=== PATIENT | female | born 1980 | race Caucasian/White ===

== ENCOUNTER 2016-09-13 11:58 | Inpatient (IN) | payer OTHER ==
--- OUTSIDE RECORDS SUMMARY | 2016-09-13 16:32 | XMS REPORT | Continuity of Care Document ---
:1980 Author Organization [facility] ([facility]) Address [address] [place] [address] Phone [phone] Care Team Providers Name Role Phone Provider, No-Primary Care Primary Care Provider Unavailable Source Comments This disclosure is being made pursuant to the Care Everywhere program, applicable federal and state laws, and may not contain all informaitonavailable regarding this patient.[facility] ([facility]) Active Allergies and Adverse Reactions No Known Allergies Current Medications Prescription Sig. Disp. Refills Start Date End Date Status multivitamin tablet Take 1 Tab by mouth Active daily. cholecalciferol (VITAMIN Take by mouth Active D3) 1,000 unit tablet daily. Indications: VITAMIN D DEFICIENCY Active Problems Not on file Social History Tobacco Use Types Packs/Day Years Used Date Never Smoker Alcohol Use Drinks/Week oz/Week Comments No Last Filed Vital Signs Vital Sign Reading Time Taken Blood Pressure 107/67 03/11/2014 11:26 AM CDT Pulse 79 03/11/2014 11:26 AM CDT Temperature 35.4 C (95.7 F) 03/11/2014 11:26 AM CDT Respiratory Rate - - Height 1.78 m (5' 10.08") 12/17/2013 9:29 AM CDT Weight 72.6 kg (160 lb 0.9 oz) 12/17/2013 9:29 AM CDT Body Mass Index 22.91 12/17/2013 9:29 AM CDT Oxygen Saturation - - Plan of Care Health Maintenance Due Date Last Done Comments Hepatitis B Vaccine (1 of 3 - Primary Series) 1980 Tdap Vaccine 1992 Lipid Disorder Screening 1999 MMR Vaccine 1999 Td Vaccine 1999 Varicella Vaccine (1 of 2 - Adult - No Evidence of 1999 Immunity) Cervical Cancer Screening 2011 Influenza Vaccine: Seasonal (#1) 12/29/2015 Results from Last 3 Months Not on file
[2016-09-13] MEDS ORDERED: ONDANSETRON HCL/PF 2 MG/ML VIAL IV PRN (16:42)
[2016-09-13] MEDS ORDERED: OXYTOCIN/DEXTROSE 5%-WATER 30 UNITS/500 ML BAG IV ONE (16:42)
[2016-09-13] MEDS ORDERED: RINGERS SOLUTION,LACTATED 1,000 ML IV ONE (16:42)
[2016-09-13] MEDS ORDERED: LIDOCAINE HCL 50 ML VIAL PERI PRN (16:42)
[2016-09-13] MEDS: DEXTROSE 5%-LACTATED RINGERS 1,000 ML IV PRN ×2 (16:45→20:39)
[2016-09-14] MEDS: DEXTROSE 5%-LACTATED RINGERS 1,000 ML IV PRN ×3 (00:42→14:58)
--- NOTE | 2016-09-14 12:39 | PN ---
Progess Note - Interim Narrative: 09/14/16 12:37 Patient tolerating her contractions without pain medication Vital signs stable. Pitocin at 12 mu/min. FHT: 130 baseline, reassuring Contractions q 3-4 min Cervix: 4-5/60/-2, posterior AROM @1015-clear Impression: Intrauterine at 39-5/7 weeks induction of labor for advanced maternal age and oligohydramnios Plan: Continue present plan 09/14/16 12:39
[2016-09-14] MEDS ORDERED: BUPIVACAINE HCL/0.9 % NACL/PF 250 ML EP PRN (14:21)
--- NOTE | 2016-09-14 14:25 | OR ---
Anesthesia Pre Procedure Eval Date of Service: 09/14/16 Pre Procedure Evaluation: Last Vital Signs Temp 36.9 C 11/30/14 10:00 Pulse Resp BP 116/69 11/30/14 10:00 Pulse Ox Anesthesia Pre Procedure Evaluation Heart Rate:87 Blood Pressure:126/73 Termperature:36.6 Respiratory Rate:18 SaO2:99 DATE: 09/14/2016 TIME: 1425 INDICATIONS: Active labor, labor pain PAST MEDICAL HISTORY: Is multipara patient in active labor requesting labor analgesia EXAM: Heart regular; lungs clear ASSESSMENT OF MEDICAL STATUS: Appropriate candidate for labor analgesia PLANNED PROCEDURE: Combination spinal epidural for labor analgesia Home Medications: HOME MEDICATIONS Inulin/Chromium Picolinate [Fiber Gummies] 1 each PO DAILY 09/13/16 [Last Taken Unknown] Vit#96/Ferrous Fum/FA [ S] 1 tab PO DAILY 09/13/16 [Last Taken Unknown]
[2016-09-14] MEDS ORDERED: fentaNYL CITRATE/PF 50 MCG/ML AMPUL IT SCH (14:30)
[2016-09-14] MEDS ORDERED: BUPIVACAINE HCL/PF 30 ML VIAL ONE (14:45)
--- NOTE | 2016-09-14 14:50 | OR ---
Anesthesia Procedure Note - Anesthesia Procedure Note Date of Service: 09/14/16 Narrative: Vital Signs - Last Taken Temp 36.9 C 11/30/14 10:00 Pulse Resp BP 116/69 11/30/14 10:00 Pulse Ox 09/14/16 14:43 ANESTHESIA PROCEDURE NOTE Date of Procedure: 09/14/2016 Time of procedure: 1425. Performed by: CHELSY Mar CRNA, MSN Mechanical Systems Engineer: Fabiola Gresham RN. Preprocedure diagnosis: Active labor, labor pain. Post procedure diagnosis: Same. Procedure: Labor Epidural Placement L3 4. Indications: Labor pain. Findings: See below. Details of the procedure: The patient was placed on the side of the bed in sitting position. The patient was prepped with DuraPrep and draped in a sterile fashion. Lidocaine 1% was infiltrated to the skin and subcutaneous tissues at the level of the L3 4 interspace. The epidural space was identified using a 18-gauge Tuohy needle with [id number] technique. Fentanyl 20 g was given intrathecally the intrathecal needle was then removed and the epidural catheter was threaded approximately 4 cm, the epidural needle was then removed, and after careful aspiration 3 mL of 1.5% lidocaine with 1-200,000 epinephrine was injected without change in maternal heart rate or sensorium. The catheter was then taped in place. EBL: Minimal. Fluids: N/A. Specimen: N/A. Post procedure condition: The patient tolerated the procedure well with limited relief. No complications were noted. Suspecting she may be progressing quickly nurse recheck shortly after placement of the epidural, and discovered a 19 cm dilatation. Considering the rapid progression of labor the fentanyl portion of the CSE will probably have little to no effect. As such, I injected her epidural with 10 mL of 0.25% preservative -free bupivacaine Thank you for this consultation. James Roque CRNA, FOOD MANAGEMENT AIDE, MSN
[2016-09-14] MEDS ORDERED: OXYTOCIN/DEXTROSE 5%-WATER 30 UNITS/500 ML BAG IV ONE (16:46)
[2016-09-14] MEDS ORDERED: HYDROCORTISONE 30 APPL TUBE TP PRN (16:46)
[2016-09-14] MEDS ORDERED: BISACODYL 10 MG SUPP.RECT RC PRN (16:46)
[2016-09-14] MEDS ORDERED: SENNOSIDES 8.6 MG TABLET PO PRN (16:46)
[2016-09-14] MEDS ORDERED: oxyCODONE HCL/ACETAMINOPHEN 1 TAB TABLET PO PRN ×2 (16:46)
[2016-09-14] MEDS ORDERED: BENZOCAINE/MENTHOL 81 SPRAY CAN TP PRN (16:46)
[2016-09-14] MEDS ORDERED: GLYCERIN/WITCH HAZEL LEAF 40 APPL BOX TP PRN (16:46)
--- NOTE | 2016-09-14 16:48 | OR ---
Operative Report - Dictated Report Narrative: Spontaneous vaginal delivery of viable female at 1539 on 09/14/2016 with Apgars 9 and 9, weighing 3318 g in PALLAVI position Cord clamping delayed approximately 1 minute Placenta delivered complete, intact, with three vessel cord Estimated blood loss: 150 ml Lacerations: None History for MU Definition: * The number of deliveries resulting in a live the patient experienced prior to current hospitalization * The previous delivery of live twins or any live multiple gestation is considered one live event. *If primagravida or nulliparous is documented select zero for the number of previous live births. Live Events: 1
[2016-09-14] MEDS ORDERED: CALCIUM CARBONATE 500 MG TAB.CHEW PO PRN (16:57)
[2016-09-14] MEDS ORDERED: MISOPROSTOL 200 MCG TABLET PO ONE (19:00)
[2016-09-14] MEDS: DOCUSATE SODIUM 100 MG CAPSULE PO SCH (21:26)
[2016-09-14] MEDS: IBUPROFEN 800 MG TABLET PO PRN (23:30)
[2016-09-15] MEDS: IBUPROFEN 800 MG TABLET PO PRN ×2 (08:05→17:13)
[2016-09-15] MEDS: DOCUSATE SODIUM 100 MG CAPSULE PO SCH ×2 (08:06→21:18)
--- NOTE | 2016-09-15 10:32 | PN ---
Subjective - Date and Time Seen Date: 09/15/16 Time: 10:30 Objective - Vitals Vitals: Last Vital Signs Temp 36.7 C 09/15/16 08:00 Pulse 80 09/15/16 08:00 Resp 20 09/15/16 08:00 BP 117/70 09/15/16 08:00 Pulse Ox 98 09/15/16 08:00 Patient denies complaints. Lochia wnl now, was a little heavy earlier last night which responded to cytotec 200mcg PO x 1. Abdomen - soft, nontender Uterus - firm, at umbilicus - 1 No calf tenderness Impression: day #1 - s/p spontaneous vaginal delivery. Moderate/ heavy lochia due to uterine bogginess - resolved with Cytotec Plan: Continue routine care
[2016-09-15] MEDS: PRENATAL VIT#96/FERROUS FUM/FA 1 TAB TABLET PO SCH (14:58)
[2016-09-15] MEDS: CHROMIUM PICOLINATE PO SCH (14:58)
[2016-09-15] MEDS: INULIN PO SCH (14:58)
[2016-09-16] MEDS ORDERED: MAGNESIUM HYDROXIDE 30 ML UDC TP PRN (08:36)
[2016-09-16] MEDS: DOCUSATE SODIUM 100 MG CAPSULE PO SCH (08:48)
[2016-09-16] MEDS: PRENATAL VIT#96/FERROUS FUM/FA 1 TAB TABLET PO SCH (08:48)
[2016-09-16] MEDS: INULIN PO SCH (08:48)
[2016-09-16] MEDS: CHROMIUM PICOLINATE PO SCH (08:48)
--- NOTE | 2016-09-16 09:13 | PN ---
Subjective - Date and Time Seen Date: 09/16/16 Time: 09:12 Objective - Vitals Vitals: Last Vital Signs Temp 36.7 C 09/15/16 08:00 Pulse 76 09/15/16 19:30 Resp 17 09/15/16 19:30 BP 120/66 09/15/16 19:30 Pulse Ox 96 09/15/16 19:30 Patient denies complaints. Lochia wnl Abdomen - soft, nontender Uterus - firm, at umbilicus - 2 No calf tenderness Impression: day #2 - s/p spontaneous vaginal delivery. Plan: Routine discharge instructions
[2016-09-16 09:41] VITALS: BP 121/77
== END 2016-09-16 11:40 | disposition home or self-care (01) | DRG 775 ==
LOC: OB 16:28
PROVIDERS: ADMIT Obstetrics & Gynecology; ATTEND Obstetrics & Gynecology
PROC: 10E0XZZ Delivery of Products of Conception, External Approach (ICD-10-PCS; principal; 2016-09-14)
PROC: 3E033VJ Introduction of Other Hormone into Peripheral Vein, Percutaneous Approach (ICD-10-PCS; 2016-09-14)
PROC: 10907ZC Drainage of Amniotic Fluid, Therapeutic from Products of Conception, Via Natural or Artificial Opening (ICD-10-PCS; 2016-09-14)
PROC: 4A1HXCZ Monitoring of Products of Conception, Cardiac Rate, External Approach (ICD-10-PCS; 2016-09-14)
PROC: 3E0S3CZ (ICD-10-PCS; 2016-09-14)
DX: O80 Encounter for full-term uncomplicated delivery (principal); Z3A.40 40 weeks gestation of pregnancy; Z37.0 Single live birth